=== PATIENT | male | born 1985 | race Caucasian/White ===

== ENCOUNTER → 2018-06-20 | Outpatient (CLI) | payer OTHER ==
[~2018-06-20] MED LIST: BACTROBAN CREAM30 G1 TOP; CLARITIN5 MG PO; CYCLOBENZAPRINE10 MG PO; DOXYCYCLINE 10100 M1 PO; FINASTERIDE5 MG PO; FLEXERIL PO; IBUPROFEN 200200 M1 PO; IBUPROFEN 600600 M1 PO; LISINOPRIL10 MG PO; NAFTIN TP; PROPECIA; PROTONIX40 MG PO; VICODIN 5-5001 EACH PO
== END ==
LOC: MRI 07:33
DX: M51.36 Other intervertebral disc degeneration, lumbar region (principal); M51.26 Other intervertebral disc displacement, lumbar region; M48.061 Spinal stenosis, lumbar region without neurogenic claudication; M51.27 Other intervertebral disc displacement, lumbosacral region